=== PATIENT | male | born 1980 | race Caucasian/White ===

== ENCOUNTER 2021-02-05 11:32 | Inpatient (IN) ==
[2021-02-05] MEDS ORDERED: NS 0.9% 1000 ml BAG 1,000 ML IV ONE ×4 (11:38→20:44)
[2021-02-05] MEDS ORDERED: Famotidine IV 10 MG/ML 2 ml VIAL (20 mg) IV SLOW PU ONE (11:38)
[2021-02-05 13:05] LABS: ABS Lymphocytes 0.4 10^3/ul (1.0-4.8); ABS Monocytes 1.3 10^3/ul (0-0.8); ABS Neutrophils 16.2 10^3/ul (1.5-7.7); Eosinophil % 0.1 %; Hematocrit 44 % (42-52); Hemoglobin 14.9 g/dL (14.0-18.0); Lymphocyte % 2.2 %; Mean Corpuscular HGB Conc 34 g/dL (31-36); Mean Corpuscular Hemoglobin 29 pg (27-31); Mean Corpuscular Volume 86 fL (80-94); Mean Platelet Volume 8.4 fL (7.4-10.4); Platelet Count 229 10^3/uL (150-450); Red Blood Count 5.14 10^6 /uL (4.18-5.48); Red Cell Distribution Width 13 % (10-15); White Blood Count 17.9 10^3/uL (3.5-10.8)
[2021-02-05 13:10] LABS: INR 1.1 (0.82-1.09)
[2021-02-05 13:21] LABS: ALT 48 U/L (7-52); AST 45 U/L (13-39); Albumin 4.9 g/dL (3.2-5.2); Albumin/Globulin Ratio 1.8 (1-3); Alkaline Phosphatase 44 U/L (35-149); Anion Gap 15 mmol/L (2-11); Blood Urea Nitrogen 14 mg/dL (6-24); CO2 Carbon Dioxide 25 mmol/L (22-32); Calcium 9.5 mg/dL (8.6-10.3); Chloride 101 mmol/L (101-111); EGFR African American 122.1 (>60); EGFR Non-African American 100.9 (>60); Globulin 2.7 g/dL (2-4); Glucose 128 mg/dL (70-100); Sodium 141 mmol/L (135-145); Total Protein 7.6 g/dL (6.4-8.9)
[2021-02-05] MEDS ORDERED: Ondansetron 4 mg VIAL 2 MG/ML 2 ml VIAL IV ONE ×2 (13:57→17:15)
[2021-02-05] MEDS ORDERED: Metoclopramide 5 MG/ML VIAL (10 mg) IV SLOW PU ONE (15:17)
[2021-02-05 16:18] LABS: Lipase 19 U/L (11.0-82.0)
[2021-02-05] MEDS ORDERED: Iohexol 300 (CONTRAST) 10 ML SDV IV ONE (17:33)
[2021-02-05] MEDS ORDERED: Thiamine IV 100 MG, Folic Acid IV 1 MG, Multiple Vitamin IV ADULT 10 ML in NS 0.9% 1000... IVPB ONE (21:11)
[2021-02-05] MEDS ORDERED: LORazepam 2 mg VIAL 1 ml IV PUSH ONE (21:12)
[2021-02-05] MEDS ORDERED: Lorazepam PYXIS KEY PRN (21:12)
[2021-02-05 21:32] LABS: C Reactive Protein < 1.00 mg/L (<8.01); Magnesium 1.3 mg/dL (1.9-2.7)
[2021-02-05] MEDS ORDERED: Magnesium Sulf 4 GM/100 ML IV 4,000 MG/100 ML BAG IVPB ONE (21:34)
[2021-02-05 21:55] LABS: Alcohol, S 10 mg/dL (<10)
[2021-02-05] MEDS ORDERED: Pantoprazole VIAL 40 MG VIAL IV SCH (22:00)
[2021-02-05 22:11] LABS: Urine Appearance Clear; Urine Bilirubin Negative (Negative); Urine Blood Negative (Negative); Urine Color Yellow; Urine Glucose Negative (Negative); Urine Ketones 2+ (Negative); Urine Nitrite Negative (Negative); Urine Protein 1+(30 mg/dL) (Negative); Urine Specific Gravity 1.024 (1.002-1.030); Urine Urobilinogen Negative (Negative)
[2021-02-05 22:15] LABS: Urine Bacteria Absent (Absent); Urine Red Blood Cell 1+(3-5/hpf) (Absent); Urine White Blood Cell Trace(0-5/hpf) (Absent)
[2021-02-05 22:22] LABS: Urine Benzodiazepine Screen None Detected (None Detect); Urine Cannabinoids Screen Presumptive Positive (None Detect); Urine Opiates Screen None Detected (None Detect)
[2021-02-05 23:49] LABS: Calcium 7.8 mg/dL (8.6-10.3); EGFR African American 134.8 (>60); EGFR Non-African American 111.4 (>60); Potassium 4.1 mmol/L (3.5-5.0)
[2021-02-06 00:09] LABS: HIV 4th Generation Nonreactive (Nonreactive)
[2021-02-06] MEDS ORDERED: Lorazepam PYXIS KEY PRN (03:37)
[2021-02-06] MEDS: LORazepam 2 mg VIAL 1 ml IV PUSH PRN ×3 (03:51→21:45)
[2021-02-06] MEDS: Benzocaine/Menthol LOZ PO PRN ×4 (03:52→19:25)
[2021-02-06] MEDS: Lactated Ringers 1000 ml BAG 1,000 ML IV SCH (06:00)
[2021-02-06] MEDS ORDERED: Lactated Ringers 1000 ml BAG 1,000 ML IV SCH (06:00)
[2021-02-06 07:04] LABS: ABS Lymphocytes 1.2 10^3/ul (1.0-4.8); ABS Monocytes 1.1 10^3/ul (0-0.8); ABS Neutrophils 10.9 10^3/ul (1.5-7.7); Hematocrit 38 % (42-52); Hemoglobin 12.9 g/dL (14.0-18.0); Lymphocyte % 8.8 %; Mean Corpuscular HGB Conc 34 g/dL (31-36); Mean Corpuscular Hemoglobin 29 pg (27-31); Mean Corpuscular Volume 85 fL (80-94); Mean Platelet Volume 8.6 fL (7.4-10.4); Platelet Count 169 10^3/uL (150-450); Red Cell Distribution Width 14 % (10-15); White Blood Count 13.2 10^3/uL (3.5-10.8)
[2021-02-06 07:16] LABS: Albumin 3.8 g/dL (3.2-5.2); Albumin/Globulin Ratio 1.7 (1-3); Calcium 8.4 mg/dL (8.6-10.3); EGFR African American 132.8 (>60); EGFR Non-African American 109.8 (>60); Globulin 2.2 g/dL (2-4); Indirect Bilirubin 0.7 mg/dL (0.3-1.0); Potassium 3.7 mmol/L (3.5-5.0); Total Bilirubin 0.8 mg/dL (0.2-1.0)
[2021-02-06 08:56] LABS: Magnesium 2.9 mg/dL (1.9-2.7)
[2021-02-06] MEDS ORDERED: Piperacillin/Tazobac ADVAN 3.375 GM in NS 0.9% 100 ml BAG 100 ML IV ONE (12:08)
[2021-02-06] MEDS ORDERED: Zosyn per Pharmacy NOTE FOLLOW UP SCH (13:00)
[2021-02-06] MEDS: Ondansetron 4 mg VIAL 2 MG/ML 2 ml VIAL IV PRN (14:54)
[2021-02-06] MEDS: Prochlorperazine 5 mg/ml 2 ml VIAL (10 mg) IV PRN (17:14)
[2021-02-06] MEDS: ZOSYN 3.375 GM Q8H per EXTENDED INFUSION IV SCH (19:25)
[2021-02-07] MEDS: Prochlorperazine 5 mg/ml 2 ml VIAL (10 mg) IV PRN ×2 (01:42→07:58)
[2021-02-07] MEDS: Benzocaine/Menthol LOZ PO PRN (01:43)
[2021-02-07] MEDS: ZOSYN 3.375 GM Q8H per EXTENDED INFUSION IV SCH ×3 (02:44→16:36)
[2021-02-07] MEDS ORDERED: Metoclopramide 5 MG/ML VIAL (10 mg) IV ONE (04:45)
[2021-02-07 05:00] LABS: ABS Monocytes 0.6 10^3/ul (0-0.8); ABS Neutrophils 6.9 10^3/ul (1.5-7.7); Eosinophil % 0.1 %; Hematocrit 38 % (42-52); Hemoglobin 13.3 g/dL (14.0-18.0); Lymphocyte % 11.6 %; Mean Corpuscular HGB Conc 35 g/dL (31-36); Mean Corpuscular Hemoglobin 30 pg (27-31); Mean Corpuscular Volume 86 fL (80-94); Mean Platelet Volume 8.6 fL (7.4-10.4); Platelet Count 161 10^3/uL (150-450); Red Blood Count 4.47 10^6 /uL (4.18-5.48); Red Cell Distribution Width 13 % (10-15); White Blood Count 8.6 10^3/uL (3.5-10.8)
[2021-02-07 05:26] LABS: Albumin/Globulin Ratio 1.8 (1-3); C Reactive Protein 7.01 mg/L (<8.01); Calcium 8.5 mg/dL (8.6-10.3); EGFR Non-African American 90.9 (>60); Globulin 2.2 g/dL (2-4); Potassium 3.2 mmol/L (3.5-5.0); Total Protein 6.2 g/dL (6.4-8.9)
[2021-02-07] MEDS ORDERED: Potassium Chlor 20 meq TAB.ER PO ONE (08:10)
[2021-02-07 08:40] LABS: Magnesium 1.8 mg/dL (1.9-2.7)
[2021-02-07] MEDS: Ondansetron 4 mg VIAL 2 MG/ML 2 ml VIAL IV PRN (09:28)
[2021-02-07] MEDS: Lactated Ringers 1000 ml BAG 1,000 ML IV SCH (21:29)
[2021-02-08] MEDS: ZOSYN 3.375 GM Q8H per EXTENDED INFUSION IV SCH (02:27)
[2021-02-08 06:11] LABS: ABS Eosinophils 0.1 10^3/ul (0-0.6); ABS Lymphocytes 1.6 10^3/ul (1.0-4.8); ABS Monocytes 0.6 10^3/ul (0-0.8); ABS Neutrophils 3.4 10^3/ul (1.5-7.7); Eosinophil % 1.6 %; Hematocrit 38 % (42-52); Hemoglobin 13.2 g/dL (14.0-18.0); Lymphocyte % 28.3 %; Mean Corpuscular HGB Conc 34 g/dL (31-36); Mean Corpuscular Hemoglobin 29 pg (27-31); Mean Corpuscular Volume 85 fL (80-94); Mean Platelet Volume 8.5 fL (7.4-10.4); Nucleated Red Blood Cells % 0.1; Platelet Count 154 10^3/uL (150-450); Red Blood Count 4.47 10^6 /uL (4.18-5.48); Red Cell Distribution Width 13 % (10-15); White Blood Count 5.7 10^3/uL (3.5-10.8)
[2021-02-08 06:34] LABS: Albumin 3.6 g/dL (3.2-5.2); Albumin/Globulin Ratio 1.7 (1-3); C Reactive Protein 2.9 mg/L (<8.01); Calcium 8.3 mg/dL (8.6-10.3); EGFR Non-African American 90.9 (>60); Globulin 2.1 g/dL (2-4); Magnesium 1.6 mg/dL (1.9-2.7); Potassium 3.4 mmol/L (3.5-5.0); Total Bilirubin 1.3 mg/dL (0.2-1.0); Total Protein 5.7 g/dL (6.4-8.9)
[2021-02-08] MEDS ORDERED: Magnesium Sulfate IV 3 GM in NS 0.9% 100 ml BAG 100 ML IVPB ONE (10:11)
[2021-02-08 12:06] VITALS: BP 149/98
== END 2021-02-08 13:10 | disposition home or self-care (01) | DRG 775 ==
LOC: ED 11:32 → MED 11:32
PROVIDERS: ADMIT Hospitalist; ATTEND Internal Medicine

== ENCOUNTER 2021-02-08 17:18 | Inpatient (IN) ==
[2021-02-08] MEDS ORDERED: NS 0.9% 1000 ml BAG 1,000 ML IV ONE (17:21)
[2021-02-08] MEDS ORDERED: Ondansetron 4 mg VIAL 2 MG/ML 2 ml VIAL IV ONE (17:21)
[2021-02-08 18:39] LABS: ABS Eosinophils 0.1 10^3/ul (0-0.6); ABS Lymphocytes 0.8 10^3/ul (1.0-4.8); ABS Monocytes 0.7 10^3/ul (0-0.8); ABS Neutrophils 7.9 10^3/ul (1.5-7.7); Eosinophil % 0.5 %; Hematocrit 42 % (42-52); Hemoglobin 14.5 g/dL (14.0-18.0); Lymphocyte % 8.8 %; Mean Corpuscular HGB Conc 35 g/dL (31-36); Mean Corpuscular Hemoglobin 29 pg (27-31); Mean Corpuscular Volume 85 fL (80-94); Mean Platelet Volume 8.6 fL (7.4-10.4); Nucleated Red Blood Cells % 0.1; Platelet Count 185 10^3/uL (150-450); Red Blood Count 4.95 10^6 /uL (4.18-5.48); Red Cell Distribution Width 13 % (10-15); White Blood Count 9.5 10^3/uL (3.5-10.8)
[2021-02-08 18:59] LABS: Albumin 4.4 g/dL (3.2-5.2); Albumin/Globulin Ratio 1.9 (1-3); C Reactive Protein 2.27 mg/L (<8.01); Calcium 8.6 mg/dL (8.6-10.3); EGFR African American 120.4 (>60); EGFR Non-African American 99.5 (>60); Globulin 2.3 g/dL (2-4); Magnesium 1.8 mg/dL (1.9-2.7); Potassium 2.9 mmol/L (3.5-5.0); Total Bilirubin 1.1 mg/dL (0.2-1.0); Total Protein 6.7 g/dL (6.4-8.9)
[2021-02-08] MEDS: KCL 20 MEQ/100 ML IVPREMIX 20 MEQ/100 ML BAG IV SCH ×2 (19:37→22:53)
[2021-02-08] MEDS ORDERED: LORazepam 2 mg VIAL 1 ml IV PUSH ONE (20:02)
[2021-02-08] MEDS ORDERED: Lorazepam PYXIS KEY PRN ×2 (20:02→20:09)
[2021-02-08] MEDS ORDERED: Magnesium Sulfate 2 gm BAG 2 GM/50 ML BAG IVPB ONE (20:11)
[2021-02-08] MEDS ORDERED: Ondansetron 4 mg VIAL 2 MG/ML 2 ml VIAL IV PRN (20:12)
[2021-02-08] MEDS ORDERED: Pantoprazole VIAL 40 MG VIAL IV SCH (21:00)
[2021-02-08] MEDS: D5NS 0.9% 1000 ml BAG 1,000 ML IV SCH (21:37)
[2021-02-09] MEDS: LORazepam 2 mg VIAL 1 ml IV PUSH PRN ×2 (00:08→04:01)
[2021-02-09] MEDS ORDERED: Metoclopramide 5 MG/ML VIAL (10 mg) IV PRN (01:49)
[2021-02-09] MEDS: D5NS 0.9% 1000 ml BAG 1,000 ML IV SCH (05:11)
[2021-02-09 06:31] LABS: Calcium 8.1 mg/dL (8.6-10.3); EGFR African American 138.9 (>60); EGFR Non-African American 114.8 (>60); Potassium 3.3 mmol/L (3.5-5.0)
[2021-02-09 07:50] LABS: Magnesium 2.2 mg/dL (1.9-2.7)
[2021-02-09] MEDS ORDERED: fentaNYL 100 mcg/2 ml 50 MCG/ML VIAL ONE (13:37)
[2021-02-09] MEDS ORDERED: Naloxone 0.4 mg VIAL 0.4 mg/ml 1 ml VIAL IV PRN (13:56)
[2021-02-09 15:11] VITALS: BP 152/95
[2021-02-09] MEDS ORDERED: Pantoprazole VIAL 40 MG VIAL IV SCH (21:00)
== END 2021-02-09 17:15 | disposition home or self-care (01) | DRG 243 ==
LOC: ED 17:18 → MED 20:03 → ED 23:08
PROVIDERS: ADMIT Student in an Organized Health Care Education/Training Program; ATTEND Internal Medicine
PROC: O.GIEGD (2021-02-09 14:00)

== ENCOUNTER 2021-03-01 15:02 | Inpatient (IN) ==
[2021-03-01 15:38] LABS: ABS Eosinophils 0.1 10^3/ul (0-0.6); ABS Lymphocytes 1.5 10^3/ul (1.0-4.8); ABS Monocytes 0.4 10^3/ul (0-0.8); ABS Neutrophils 2.2 10^3/ul (1.5-7.7); Hematocrit 40 % (42-52); Hemoglobin 13.8 g/dL (14.0-18.0); Lymphocyte % 35.3 %; Mean Corpuscular HGB Conc 34 g/dL (31-36); Mean Corpuscular Hemoglobin 30 pg (27-31); Mean Corpuscular Volume 86 fL (80-94); Mean Platelet Volume 8.1 fL (7.4-10.4); Platelet Count 204 10^3/uL (150-450); Red Blood Count 4.67 10^6 /uL (4.18-5.48); Red Cell Distribution Width 13 % (10-15); White Blood Count 4.3 10^3/uL (3.5-10.8)
[2021-03-01 16:00] LABS: Troponin I 0.73 ng/mL (<0.03)
[2021-03-01 16:06] LABS: ALT 16 U/L (7-52); AST 19 U/L (13-39); Albumin 4.3 g/dL (3.2-5.2); Albumin/Globulin Ratio 1.9 (1-3); Alkaline Phosphatase 40 U/L (35-149); Anion Gap 6 mmol/L (2-11); Blood Urea Nitrogen 15 mg/dL (6-24); CO2 Carbon Dioxide 31 mmol/L (22-32); Calcium 8.8 mg/dL (8.6-10.3); Chloride 103 mmol/L (101-111); EGFR African American 97.3 (>60); EGFR Non-African American 80.4 (>60); Globulin 2.3 g/dL (2-4); Glucose 88 mg/dL (70-100); Potassium 4.2 mmol/L (3.5-5.0); Sodium 140 mmol/L (135-145); Total Protein 6.6 g/dL (6.4-8.9)
[2021-03-01] MEDS ORDERED: Heparin DRIP 25,000 UNITS BAG 25,000 UNITS/500 ML BAG IV SCH ×2 (17:00→19:15)
[2021-03-01] MEDS ORDERED: Heparin 5000 UNITS/ML 1 mL VIAL IV SCH ×2 (17:00→20:00)
[2021-03-01 17:18] LABS: Activated Partial Thrombo Time 29.7 seconds (26.0-38.0); INR 1.07 (0.82-1.09)
[2021-03-01 18:46] LABS: Troponin I 0.71 ng/mL (<0.03)
[2021-03-01] MEDS ORDERED: Lactated Ringers 1000 ml BAG 1,000 ML IV ONE (19:01)
[2021-03-01] MEDS ORDERED: Ondansetron 4 mg VIAL 2 MG/ML 2 ml VIAL IV PRN (19:01)
[2021-03-01 19:44] LABS: C Reactive Protein < 1.00 mg/L (<8.01)
[2021-03-01 21:39] LABS: Erythrocyte Sed Rate 2 mm/Hr (0-14)
[2021-03-01 22:00] LABS: INR 1.16 (0.82-1.09)
[2021-03-01 22:03] LABS: EGFR African American 106.8 (>60); EGFR Non-African American 88.3 (>60)
[2021-03-01 22:08] LABS: Troponin I 0.75 ng/mL (<0.03)
[2021-03-02 00:37] LABS: Troponin I 0.84 ng/mL (<0.03)
[2021-03-02 05:14] LABS: Troponin I 0.84 ng/mL (<0.03)
[2021-03-02 06:24] LABS: Anion Gap 4 mmol/L (2-11); Blood Urea Nitrogen 12 mg/dL (6-24); CO2 Carbon Dioxide 29 mmol/L (22-32); Calcium 8.6 mg/dL (8.6-10.3); Chloride 105 mmol/L (101-111); Cholesterol 150 mg/dL; EGFR African American 115.1 (>60); EGFR Non-African American 95.2 (>60); Glucose 93 mg/dL (70-100); HDL Cholesterol 46.3 mg/dL; LDL Cholesterol 91 mg/dL; Magnesium 1.7 mg/dL (1.9-2.7); Potassium 3.7 mmol/L (3.5-5.0); Sodium 138 mmol/L (135-145); Triglycerides 66 mg/dL
[2021-03-02 06:28] LABS: Troponin I 0.79 ng/mL (<0.03)
[2021-03-02 06:44] LABS: ABS Eosinophils 0.1 10^3/ul (0-0.6); ABS Lymphocytes 1.5 10^3/ul (1.0-4.8); ABS Monocytes 0.3 10^3/ul (0-0.8); ABS Neutrophils 1.5 10^3/ul (1.5-7.7); Eosinophil % 3.5 %; Hematocrit 39 % (42-52); Hemoglobin 13.7 g/dL (14.0-18.0); Lymphocyte % 42.5 %; Mean Corpuscular HGB Conc 35 g/dL (31-36); Mean Corpuscular Hemoglobin 30 pg (27-31); Mean Corpuscular Volume 85 fL (80-94); Mean Platelet Volume 8.2 fL (7.4-10.4); Nucleated Red Blood Cells % 0.1; Platelet Count 197 10^3/uL (150-450); Red Blood Count 4.57 10^6 /uL (4.18-5.48); Red Cell Distribution Width 13 % (10-15); White Blood Count 3.5 10^3/uL (3.5-10.8)
[2021-03-02] MEDS: Aspirin EC 81 mg TAB.EC (enteric coated) PO SCH (09:43)
[2021-03-02] MEDS ORDERED: Nitro Patch/OINT Remove PATCH PATCH OFF SCH (12:00)
[2021-03-02 12:03] LABS: HIV 4th Generation Nonreactive (Nonreactive)
[2021-03-02] MEDS ORDERED: Nitro 2% OINT (Nitroglycerin) 1 INCH/PAK TOPICAL SCH (19:30)
[2021-03-02] MEDS ORDERED: Magnesium Sulfate IV 3 GM in NS 0.9% 100 ml BAG 100 ML IVPB ONE (20:00)
[2021-03-03 06:36] LABS: ABS Eosinophils 0.1 10^3/ul (0-0.6); ABS Lymphocytes 1.3 10^3/ul (1.0-4.8); ABS Monocytes 0.4 10^3/ul (0-0.8); ABS Neutrophils 1.8 10^3/ul (1.5-7.7); Eosinophil % 3.5 %; Hematocrit 43 % (42-52); Hemoglobin 14.4 g/dL (14.0-18.0); Lymphocyte % 35.6 %; Mean Corpuscular HGB Conc 34 g/dL (31-36); Mean Corpuscular Hemoglobin 29 pg (27-31); Mean Corpuscular Volume 87 fL (80-94); Platelet Count 212 10^3/uL (150-450); Red Blood Count 4.89 10^6 /uL (4.18-5.48); Red Cell Distribution Width 13 % (10-15); White Blood Count 3.6 10^3/uL (3.5-10.8)
[2021-03-03] MEDS: Aspirin EC 81 mg TAB.EC (enteric coated) PO SCH (09:01)
[2021-03-03 11:42] VITALS: BP 137/99
[2021-03-04 22:57] LABS: CMV DNA DETECT/QT, P Undetected IU/mL (Undetected)
== END 2021-03-03 15:00 | disposition home or self-care (01) | DRG 203 ==
LOC: MEDTELE 15:02 → ED 15:02 → MEDTELE 21:08
PROVIDERS: ADMIT Hospitalist; ATTEND Internal Medicine

== ENCOUNTER 2022-11-03 20:49 | Observation (INO) ==
[2022-11-03] MEDS ORDERED: Lactated Ringers 1000 ml BAG 1,000 ML IV ONE (21:49)
[2022-11-03] MEDS ORDERED: Droperidol 5 MG/2 ML 2 ML VIAL IV ONE (21:49)
[2022-11-03 21:56] LABS: ABS Eosinophils 0.1 10^3/ul (0-0.6); ABS Lymphocytes 1.3 10^3/ul (1.0-4.8); ABS Monocytes 0.6 10^3/ul (0-0.8); ABS Neutrophils 5.5 10^3/ul (1.5-7.7); Eosinophil % 0.7 %; Hematocrit 45 % (42-52); Hemoglobin 14.9 g/dL (14.0-18.0); Lymphocyte % 17.6 %; Mean Corpuscular HGB Conc 33 g/dL (31-36); Mean Corpuscular Hemoglobin 28 pg (27-31); Mean Corpuscular Volume 85 fL (80-94); Mean Platelet Volume 8.1 fL (7.4-10.4); Nucleated Red Blood Cells % 0.1; Platelet Count 222 10^3/uL (150-450); Red Blood Count 5.28 10^6 /uL (4.18-5.48); Red Cell Distribution Width 13 % (10-15); White Blood Count 7.5 10^3/uL (3.5-10.8)
[2022-11-03 22:06] LABS: INR 1.24 (0.88-1.18)
[2022-11-03 22:45] LABS: Albumin 4.2 g/dL (3.2-5.2); Albumin/Globulin Ratio 1.8 (1-3); Calcium 8.8 mg/dL (8.6-10.3); Creatinine, Serum 1.07 mg/dL (0.67-1.17); Globulin 2.3 g/dL (2-4); Potassium 3.1 mmol/L (3.5-5.0); Total Bilirubin 1.6 mg/dL (0.2-1.0); Total Protein 6.5 g/dL (6.4-8.9)
[2022-11-03] MEDS ORDERED: KCL 20 MEQ/100 ML IVPREMIX 20 MEQ/100 ML BAG IV ONE (22:46)
[2022-11-03] MEDS ORDERED: NS 0.9% 1000 ml BAG 2,000 ML IV ONE (22:48)
[2022-11-04 01:45] LABS: Magnesium 1.9 mg/dL (1.9-2.7)
[2022-11-04] MEDS ORDERED: Trimethobenzamide *IM* 100 mg/ml 2 ml VIAL (200 mg) IM PRN (01:53)
[2022-11-04] MEDS ORDERED: Pantoprazole VIAL 40 MG VIAL IV ONE (01:57)
[2022-11-04] MEDS ORDERED: NS 0.9% 1000 ml BAG 1,000 ML IV SCH (02:00)
[2022-11-04] MEDS: KCL 20 MEQ/100 ML IVPREMIX 20 MEQ/100 ML BAG IV SCH ×2 (03:15→06:25)
[2022-11-04 06:44] LABS: ABS Eosinophils 0.1 10^3/ul (0-0.6); ABS Lymphocytes 1.5 10^3/ul (1.0-4.8); ABS Monocytes 0.6 10^3/ul (0-0.8); ABS Neutrophils 4.5 10^3/ul (1.5-7.7); Eosinophil % 1.2 %; Hematocrit 42 % (42-52); Hemoglobin 14.2 g/dL (14.0-18.0); Lymphocyte % 21.7 %; Mean Corpuscular HGB Conc 34 g/dL (31-36); Mean Corpuscular Hemoglobin 29 pg (27-31); Mean Corpuscular Volume 84 fL (80-94); Mean Platelet Volume 8.7 fL (7.4-10.4); Platelet Count 204 10^3/uL (150-450); Red Cell Distribution Width 13 % (10-15); White Blood Count 6.7 10^3/uL (3.5-10.8)
[2022-11-04 06:49] LABS: Calcium 8.1 mg/dL (8.6-10.3); Creatinine, Serum 0.91 mg/dL (0.67-1.17); Potassium 3.4 mmol/L (3.5-5.0); eGFR CKD-EPI 109.3 (>60)
[2022-11-04 07:32] LABS: Hepatitis B Surface Antigen Nonreactive (Nonreactive)
[2022-11-04 07:37] LABS: Hepatitis A Ab IgM Negative (Negative)
[2022-11-04 07:38] LABS: Hepatitis B Core IgM Nonreactive (Nonreactive)
[2022-11-04 07:49] LABS: Hepatitis C Antibody Negative (Negative)
[2022-11-04 11:11] VITALS: BP 157/98
[2022-11-05] MEDS ORDERED: Pantoprazole VIAL 40 MG VIAL IV SCH (09:00)
== END 2022-11-04 14:30 | disposition home or self-care (01) ==
LOC: EDHOLD 20:49 → ED 20:49 → SUATTDRO 11-04 01:08 → MED 11-04 04:41
PROVIDERS: ADMIT Hospitalist; ATTEND Internal Medicine